=== PATIENT | male | born 1970 | race Caucasian/White ===

== ENCOUNTER 2020-01-28 13:07 | Emergency (ER) | payer OTHER ==
[~2020-01-28] VITALS: Ht 175.3 cm; Wt 83.0 kg
[2020-01-28 13:22] VITALS: BP 114/77; Ht 175.3 cm; Wt 83.0 kg
== END 2020-01-28 15:08 | disposition home or self-care (01) ==
LOC: ED 13:07
DX: S93.402A Sprain of unspecified ligament of left ankle, initial encounter (principal); X50.1XXA Overexertion from prolonged static or awkward postures, initial encounter; Y93.89 Activity, other specified; Y92.89 Other specified places as the place of occurrence of the external cause; Y99.8 Other external cause status